=== PATIENT | female | born 1995 ===

== ENCOUNTER 2021-01-24 18:08 | Emergency (ER) | payer OTHER ==
[~2021-01-24] VITALS: Ht 152.4 cm; Wt 56.7 kg
[2021-01-24] MEDS ORDERED: DICLEGIS DR 101 EACH (18:16)
[2021-01-24] MEDS ORDERED: CONCEPT DHA CA1 EACH (18:16)
== END 2021-01-24 21:56 | disposition home or self-care (01) ==
LOC: ER 18:08
DX: O26.891 Other specified pregnancy related conditions, first trimester (principal); R42 Dizziness and giddiness; Z34.01 Encounter for supervision of normal first pregnancy, first trimester

== ENCOUNTER 2021-02-15 11:38 | Emergency (ER) | payer OTHER ==
[~2021-02-15] VITALS: Ht 152.4 cm; Wt 56.7 kg
[~2021-02-15 11:38] MED LIST: CONCEPT DHA CA1 EACH; DICLEGIS DR 101 EACH
[2021-02-15] MEDS ORDERED: ONDANSETRON HCL4 MG PO (19:06)
== END 2021-02-15 19:29 | disposition home or self-care (01) ==
LOC: ER 11:38
DX: O21.1 Hyperemesis gravidarum with metabolic disturbance (principal); O26.892 Other specified pregnancy related conditions, second trimester; R55 Syncope and collapse; Z34.02 Encounter for supervision of normal first pregnancy, second trimester; Z11.52 Encounter for screening for COVID-19

== ENCOUNTER 2021-07-31 03:34 | Inpatient (IN) | payer OTHER ==
[~2021-07-31] VITALS: Ht 152.4 cm; Wt 63.5 kg
[~2021-07-31 03:34] MED LIST changes: +ONDANSETRON HCL4 MG PO
== END 2021-08-02 11:25 | disposition home or self-care (01) | DRG 807 ==
LOC: LDR 03:34 → OB/GYN 15:35
PROVIDERS: ADMIT Obstetrics & Gynecology; ATTEND Obstetrics & Gynecology
PROC: 10E0XZZ Delivery of Products of Conception, External Approach (ICD-10-PCS; principal; 2021-07-31)
PROC: 0KQM0ZZ Repair Perineum Muscle, Open Approach (ICD-10-PCS; 2021-07-31)
PROC: 3E033VJ Introduction of Other Hormone into Peripheral Vein, Percutaneous Approach (ICD-10-PCS; 2021-07-31)
PROC: 10907ZC Drainage of Amniotic Fluid, Therapeutic from Products of Conception, Via Natural or Artificial Opening (ICD-10-PCS; 2021-07-31)
PROC: 3E0P7VZ Introduction of Hormone into Female Reproductive, Via Natural or Artificial Opening (ICD-10-PCS; 2021-07-31)
PROC: 4A1HXFZ Monitoring of Products of Conception, Cardiac Rhythm, External Approach (ICD-10-PCS; 2021-07-31)
DX: O70.1 Second degree perineal laceration during delivery (principal); Z37.0 Single live birth; Z3A.40 40 weeks gestation of pregnancy